=== PATIENT | female | born 1980 | race Two or more races ===

== ENCOUNTER 2016-12-10 07:19 | Emergency (ER) | payer OTHER ==
[~2016-12-10] VITALS: Ht 152.4 cm; Wt 61.2 kg
[~2016-12-10 07:19] MED LIST: AMOX500T3 PO; IBUP800T24 PO
[2016-12-10 07:48] LABS: Basophils # (auto) 0 uL; DEFINITIVE SEE PRINTOUT; Eosinophils # (auto) 0 uL
[2016-12-10 08:02] LABS: Basophils % (auto) 0.5 % (0.0-2.0); Eosinophils % (auto) 0.1 % (0.0-7.0); Hematocrit 48.7 % (36.0-46.0); Lymphocytes # (auto) 1.7 uL; Lymphocytes % (auto) 28.3 % (10.0-50.0); Mean Corpuscular Hemoglobin 28.7 pg (28.0-32.0); Mean Corpuscular Hgb Conc. 32.9 g/dL (32.0-36.0); Mean Corpuscular Volume 87.3 fL (80.0-100.0); Mean Platelet Volume 7.6 fL (7.4-10.4); Monocytes # (auto) 0.3 uL; Monocytes % (auto) 4.4 % (0.0-12.0); Neutrophils # (auto) 4.1 uL; Neutrophils % (auto) 66.7 % (37.0-80.0); Platelet Count (auto) 441 10^3/uL (140-450); Red Cell Distribution Width 12.2 % (11.6-16.0); White Blood Cell 6.1 10^3/uL (4.4-10.8)
[2016-12-10 08:15] LABS: Albumin 4.3 g/dL (3.4-5.0); BUN/Creatinine Ratio 13.4; Bilirubin, Total 0.9 mg/dL (0.2-1.0); Calcium 9.1 mg/dL (8.5-10.1); Potassium 4.3 mmol/L (3.5-5.1); Total Protein 8.5 g/dL (6.4-8.2)
[2016-12-10 08:39] LABS: Urine Bilirubin Negative (Negative); Urine Color Yellow (Yellow); Urine Glucose Normal (Normal); Urine Mucus FEW (None Seen); Urine Nitrite Negative (Negative); Urine RBC 3 /hpf (0 - 4); Urine Squamous Epithelial Cell FEW /hpf (<5); Urine Urobilinogen Normal (Negative); Urine pH 5.5 (5.0-8.0)
[2016-12-10 08:43] LABS: Urine Blood 1+ /uL (Negative); Urine Ketone 1+ (Negative)
[2016-12-10] MEDS ORDERED: LABETALOL HCL 5 MG/ML 4ML SYRINGE IV ONE (09:00)
[2016-12-10] MEDS ORDERED: KETOROLAC TROMETH 30 MG/ML 1ML VIAL IV ONE (09:00)
[2016-12-10] MEDS ORDERED: LORazepam 2MG/ML-1ML VIAL IV ONE (09:00)
[2016-12-10] MEDS ORDERED: SODIUM CHLORIDE 0.9% 1,000 ML IV ONE (10:35)
[2016-12-10 11:31] VITALS: BP 149/77
== END 2016-12-10 11:45 | disposition home or self-care (01) ==
LOC: ER 07:19
DX: G43.909 Migraine, unspecified, not intractable, without status migrainosus (principal); E86.0 Dehydration; I10 Essential (primary) hypertension
CPT/HCPCS: 36415; 70450; 80053; 81001; 81025; 84702; 85025; 96374; 96375; 99285; J1885; J2060; J3490; J7030

== ENCOUNTER 2018-08-07 19:03 | Emergency (ER) | payer OTHER ==
[~2018-08-07] VITALS: Ht 152.4 cm; Wt 56.7 kg
[2018-08-07] MEDS ORDERED: cloNIDine HCL 0.1 MG TAB ONE (19:12)
[2018-08-07] MEDS ORDERED: cloNIDine HCL 0.1 MG TAB PO ONE (19:15)
[2018-08-07 19:56] LABS: Basophils # (auto) 0 uL; Basophils % (auto) 0.6 % (0.0-2.0); Eosinophils # (auto) 0.1 uL; Eosinophils % (auto) 2.1 % (0.0-7.0); Hematocrit 43.9 % (36.0-46.0); Hemoglobin 14.5 g/dL (12.2-16.2); Lymphocytes # (auto) 2.3 uL; Mean Corpuscular Hemoglobin 29.9 pg (28.0-32.0); Mean Corpuscular Hgb Conc. 33.1 g/dL (32.0-36.0); Mean Corpuscular Volume 90.5 fL (80.0-100.0); Monocytes # (auto) 0.5 uL; Monocytes % (auto) 8.4 % (0.0-12.0); Neutrophils # (auto) 2.8 uL; Neutrophils % (auto) 48.9 % (37.0-80.0); Nucleated Red Blood Cells % 0.1 %; Platelet Count (auto) 332 10^3/uL (140-450); Red Blood Cells 4.84 10^6/uL (4.0-5.20); Red Cell Distribution Width 13.2 % (11.8-14.3); White Blood Cell 5.8 10^3/uL (4.4-10.8)
[2018-08-07 20:04] LABS: Urine Bacteria NONE SEEN /hpf (None Seen); Urine Blood 1+ /uL (Negative); Urine Specific Gravity 1.029 (1.001-1.035); Urine WBC 1 /hpf (0 - 5)
[2018-08-07 20:10] LABS: Albumin 4.2 g/dL (3.4-5.0); BUN/Creatinine Ratio 18.9; Calcium 8.3 mg/dL (8.5-10.1); Potassium 3.6 mmol/L (3.5-5.1)
[2018-08-07 20:11] LABS: Urine Pregnacy Test Negative (Negative)
[2018-08-07 20:12] LABS: Bilirubin, Total 0.4 mg/dL (0.2-1.0)
[2018-08-07 20:15] LABS: Alcohol, Urine < 3.0 mg/dL (0-5); Amphetamine Screen, Urine NEGATIVE (NEGATIVE); Barbiturate Scree,Urine NEGATIVE (NEGATIVE); Benzodiazephine Screen, Urine NEGATIVE (NEGATIVE); Cannabinoid Screen, Urine POSITIVE (NEGATIVE); Cocaine Screen, Urine NEGATIVE (NEGATIVE); Opiate Scree,Urine NEGATIVE (NEGATIVE); Phencyclidine Screen, Urine NEGATIVE (NEGATIVE)
[2018-08-08 00:49] VITALS: BP 103/65
== END 2018-08-08 01:05 | disposition home or self-care (01) ==
LOC: ER 19:03
DX: I10 Essential (primary) hypertension (principal); R42 Dizziness and giddiness; F12.10 Cannabis abuse, uncomplicated
CPT/HCPCS: 36415; 71045; 80053; 80307; 81001; 81025; 85025; 93005

== ENCOUNTER 2024-09-28 14:56 | Emergency (ER) | payer OTHER ==
[~2024-09-28] VITALS: Ht 152.4 cm; Wt 62.2 kg
[~2024-09-28 14:56] MED LIST changes: +IBUP-1456 PO; -IBUP800T24 PO
[2024-09-28 15:10] VITALS: BP 165/105; PULSE 68; RESP 19; TEMP 99.4; O2SAT 97
--- NOTE | 2024-09-28 15:13 | ECG ---
[facility] Test Date: 2024-09-28 Test Time: 15:09:29 Pat Name: CHING ADAM Department: ED Room: Gender: F Family Practice Md: ED : 1980 Requested By: FREEMAN YEBOAH Order Number: [id number] Reading MD: Carlitos Oliva Measurements Intervals [place] Rate: 61 P: 54 [place]: 133 QRS: 89 QRSD: 91 T: 48 QT: 406 QTc: 409 Interpretive Statements Sinus rhythm Electronically Signed On 09-29-2024 12:48:37 PDT by Carlitos Oliva Please click the below link to view image of tracing.
--- NOTE | 2024-09-28 15:21 | ED.PDOC ---
History of Present Illness HPI Comments 44-year-old female with PMHx HTN presents with a chief complaint of left-sided facial swelling and soreness. Patient states that she began to have soreness to the left side of her mouth, then it spread to her face, then to her left arm. Patient denies any headache, neck pain, loss of motor function, or incontinence. No other symptoms or modifying factors present at this time. Chief Complaint: Face pain Time Seen by MD: 15:10 Primary Care Provider: KAYE Morris Notes: Nurses Notes, Medications, Allergies Allergies: Coded Allergies: NO KNOWN ALLERGIES (Unverified , 05/24/13) Home Meds Active Scripts Ibuprofen (Ibuprofen) 800 Mg Tab, 800 MG PO Q6HP PRN, #20 MG 0 Refills Prov:AGUS SMALLWOOD 05/24/13 Amoxicillin Trihydrate (Amoxicillin) 500 Mg Tab, 500 MG PO BID, #20 TAB 0 Ref ills Prov:AGUS SMALLWOOD 05/24/13 Information Source: Patient Mode of Arrival: Ambulatory Severity: Moderate Timing: Hours Duration: Since onset Prehospital treatment: None Past Medical History PAST MEDICAL HISTORY: HTN Surgical History: Denies all surgeries FLAG SIGNALER History: No Pertinent FLAG SIGNALER History Family History Family History: Unknown Social History Smoker: Non-Smoker Alcohol: Denies ETOH Use Drugs: Marijuana Lives In: Home Constitutional: denies: chills, diaphoresis, fatigue, fever, malaise, sweats, weakness, others EENTM: reports: mouth swelling; denies: blurred vision, double vision, ear bleeding, ear discharge, ear drainage, ear pain, ear ringing, eye pain, eye redness, hearing loss, mouth pain, nasal discharge, nose bleeding, nose congestion, nose pain, photophobia, tearing, throat pain, throat swelling, voice changes, others Respiratory: denies: cough, hemoptysis, orthopnea, SOB at rest, shortness of breath, SOB with excertion, stridor, wheezing, others Cardiovascular: denies: chest pain, dizzy spells, diaphoresis, Dyspnea on exertion, edema, irregular heart beat, left arm pain, lightheadedness, palpitations, PND, syncope, others Gastrointestinal: denies: abdomen distended, abdominal pain, blood streaked bowels, constipated, diarrhea, dysphagia, difficulty swallowing, hematemesis, melena, nausea, poor appetite, poor fluid intake, rectal bleeding, rectal pain, vomiting, others Genitourinary: denies: abnormal vagina bleeding, burning, dyspareunia, dysuria, flank pain, frequency, hematuria, incontinence, pain, , vagina discharge, urgency, others Neurological: denies: dizziness, fainting, headache, left sided numbness, left sided weakness, numbness, paresthesia, pre-existing deficit, right sided numbness, right sided weakness, seizure, speech problems, tingling, tremors, weakness, others Musculoskeletal: reports: muscle pain; denies: back pain, gout, joint pain, joint swelling, muscle stiffness, neck pain, others Integumetry: denies: bruises, change in color, change in hair/nails, dryness, laceration, lesions, lumps, rash, wounds, others Allergic/Immunocompromised: denies: Difficulty Healing, Frequent Infections, Hives, Itching, others Hematologic/Lymphatic: denies: anemia, blood clots, easy bleeding, easy bruising, swollen glands, others Endocrine: denies: excessive hunger, excessive sweating, excessive thirst, excessive urination, flushing, intolerance to cold, intolerance to heat, unexplained weight gain, unexplained weight loss, others Psychiatric: denies: anxiety, bipolar disorder, depression, hopeless, panic disorder, schizophrenia, sleepless, suicidal, others All Other Systems: Reviewed and Negative Physical Exam General Appearance: Moderate Distress, Normal HEENT: Normal ENT Inspection, Pharynx Normal, TMs Normal, Other (Dental caries) Neck: Full Range of Motion, Non-Tender, Normal, Normal Inspection Respiratory: Chest Non-Tender, Lungs Clear, No Accessory Muscle Use, No Respiratory Distress, Normal Breath Sounds Cardiovascular: No Edema, No JVD, No Murmur, No Gallop, Normal Peripheral Pulses, Regular Rate/Rhythm Breast Exam: Deferred Gastrointestinal: No Organomegaly, Non Tender, No Pulsatile Mass, Normal Bowel Sounds, Soft Genitalia: Deferred Pelvic: Deferred Rectal: Deferred Extremities: No calf tenderness, Normal capillary refill, Normal inspection, Normal range of motion, Non-tender, No pedal edema Musculoskeletal : Apperance: Normal Neurologic: Alert, continuous dryout operator II-XII nml as Tested, No Motor Deficits, Normal Affect, Normal Mood, No Sensory Deficits Cerebellar Function: Normal Reflexes: Normal Skin: Dry, Normal Color, Warm Peripheral Pulses: 3+ Radial (R), 3+ Radial (L) Lymphatic: No Adenopathy Was a procedure done? Was a procedure done?: No Differential Dx Considerations may include: Dental caries X-Ray, Labs, Meds, VS Vital Signs Date Time Temp Pulse Resp B/P (MAP) Pulse Ox O2 Delivery O2 Flow Rate FiO2 09/28/24 15:10 99.4 68 19 165/105 (125) 97 99.4 09/28/24 15:09 61 Lab Test 09/28/24 15:30 09/28/24 15:03 Range/Units White Blood Count 7.1 4.4-10.8 10^3/uL Red Blood Count 4.62 4.0-5.20 10^6/uL Hemoglobin 13.7 12.2-16.2 g/dL Hematocrit 40.6 36.0-46.0 % Mean Corpuscular Volume 87.9 80.0-100.0 fL Mean Corpuscular Hemoglobin 29.7 28.0-32.0 pg Mean Corpuscular Hemoglobin Concent 33.8 32.0-36.0 g/dL Red Cell Distribution Width 13.1 11.8-14.3 % Platelet Count 346 140-450 10^3/uL Mean Platelet Volume 7.3 6.9-10.8 fL Neutrophils (%) (Auto) 63.0 37.0-80.0 % Lymphocytes (%) (Auto) 26.8 10.0-50.0 % Monocytes (%) (Auto) 6.7 0.0-12.0 % Eosinophils (%) (Auto) 3.1 0.0-7.0 % Basophils (%) (Auto) 0.4 0.0-2.0 % Neutrophils # (Auto) 4.5 1.6-8.6 10 ^3/uL Lymphocytes # (Auto) 1.9 0.4-5.4 10 ^3/uL Monocytes # (Auto) 0.5 0-1.3 10 ^3/uL Eosinophils # (Auto) 0.2 0-0.8 10 ^3/uL Basophils # (Auto) 0 0-0.2 10 ^3/uL Nucleated Red Blood Cells 0.0 % Sodium Level 142 136-145 mmol/L Potassium Level 4.0 3.5-5.1 mmol/L Chloride Level 104 98-107 mmol/L Carbon Dioxide Level 31 20-31 mmol/L Anion Gap 7 5-15 Blood Urea Nitrogen 9 9-23 mg/dL Creatinine 0.74 0.550-1.02 mg/dL Glomerular Filtration Rate Calc 102 >90 mL/min BUN/Creatinine Ratio 12.2 10.0-20.0 Serum Glucose 101 74-106 mg/dL Calcium Level 9.9 8.7-10.4 mg/dL POC Glucose 99 70-106 mg/dl Patient alert. Complaining of left side jaw swelling. Vitals stable. Answering questions. On examination she does have dental caries. Infection coming from the left side of the mouth. Good muscle strength. No sign of TIA. No sign of an CVA. WBC within normal limits. Blood pressure slightly elevated. Blood pressure elevated. Was given clonidine. Was given prescription Augmentin antibiotic. Explained to the patient why the antibiotics are given. Results were expressed. Was told to follow up with her primary care physician. Was told to come back if there is any problem. Time of 1ST Reevaluation: 15:10 (EXPLAINED TO THE PATIENT THAT THEY MAY BE STAYING WITH US IN THE HOSPITAL, BUT IF STABLE FOR DISCHARGE, THEY WILL BE NOTIFIED AND SENT HOME. ) Reevaluation 1ST: Unchanged Time of 2ND Reevaluation: 15:40 Reevaluation 2ND: Unchanged Patient Education/Counseling: Diagnosis, Treatment Family Education/Counseling: No Family Present Departure 1 Departure Time of Disposition: 16:02 Impression: Primary Impression: Hypertensive urgency Additional Impression: Dental caries Disposition: 01 HOME / SELF CARE / HOMELESS Condition: Good e-Prescriptions Amoxicillin & Pot Clavulanate (Augmentin) 500 Mg Tab 1 TAB PO BID for 10 Days, #20 TAB Prov: FREEMAN YEBOAH MD 09/28/24 Discharged With: Self Critical Care Note Critical Care Time?: No Stability Stability form required: No Heart Score Heart Score: Heart Score Response (Comments) Value History N/A 0 EKG N/A 0 Age N/A 0 Risk Factors N/A 0 Troponin N/A 0 Total 0 I personally scribed for FREEMAN YEBOAH MD ([email or web address]) on 09/28/24 at 15:21. Electronically submitted by Ashutosh Carlisle ([email or web address]). FREEMAN YEBOAH MD September 28, 2024 15:21
[2024-09-28 15:44] LABS: Basophils # (auto) 0 10 ^3/uL (0-0.2); Basophils % (auto) 0.4 % (0.0-2.0); Eosinophils # (auto) 0.2 10 ^3/uL (0-0.8); Eosinophils % (auto) 3.1 % (0.0-7.0); Hematocrit 40.6 % (36.0-46.0); Hemoglobin 13.7 g/dL (12.2-16.2); Lymphocytes # (auto) 1.9 10 ^3/uL (0.4-5.4); Lymphocytes % (auto) 26.8 % (10.0-50.0); Mean Corpuscular Hemoglobin 29.7 pg (28.0-32.0); Mean Corpuscular Hgb Conc. 33.8 g/dL (32.0-36.0); Mean Corpuscular Volume 87.9 fL (80.0-100.0); Monocytes # (auto) 0.5 10 ^3/uL (0-1.3); Monocytes % (auto) 6.7 % (0.0-12.0); Neutrophils # (auto) 4.5 10 ^3/uL (1.6-8.6); Platelet Count (auto) 346 10^3/uL (140-450); Red Blood Cells 4.62 10^6/uL (4.0-5.20); Red Cell Distribution Width 13.1 % (11.8-14.3); White Blood Cell 7.1 10^3/uL (4.4-10.8)
[2024-09-28 15:54] LABS: Chloride 104 mmol/L (98-107); Sodium 142 mmol/L (136-145)
[2024-09-28 15:55] LABS: Anion Gap 7 (5-15); Calcium 9.9 mg/dL (8.7-10.4); Carbon Dioxide 31 mmol/L (20-31)
[2024-09-28 16:00] LABS: BUN/Creatinine Ratio 12.2 (10.0-20.0); Blood Urea Nitrogen 9 mg/dL (9-23); Glucose 101 mg/dL (74-106)
[2024-09-28] MEDS ORDERED: AMOX500T86 PO (16:03)
[2024-09-28] MEDS ORDERED: cloNIDine HCL 0.1 MG TAB PO ONE (16:15)
== END 2024-09-29 01:00 | disposition home or self-care (01) ==
LOC: ER 15:01
DX: K02.9 Dental caries, unspecified (principal); I16.0 Hypertensive urgency; I10 Essential (primary) hypertension; F19.90 Other psychoactive substance use, unspecified, uncomplicated
CPT/HCPCS: 36415; 80048; 82947; 82962; 85025; 93005

== ENCOUNTER 2024-12-30 17:00 | Emergency (ER) | payer OTHER ==
[~2024-12-30] VITALS: Ht 152.4 cm; Wt 60.5 kg
[~2024-12-30 17:00] MED LIST changes: +AMOX500T86 PO
[2024-12-30] MEDS: KETOROLAC TROMETH 60MG/2ML VIAL IM ONE (18:01)
[2024-12-30 18:45] LABS: Urine Protein, UAD Negative (Negative)
[2024-12-30] MEDS: HYDROcodone-ACET 10/325MG TAB PO ONE (19:15)
--- NOTE | 2024-12-30 19:15 | DVH ---
EXAM: XY CERVICAL SPINE 3V HISTORY: Left-sided pain COMPARISON: None TECHNIQUE: 4 projections of the cervical spine FINDINGS: Normal alignment of the cervical spine visualized C7. No abnormal widening of the atlantoaxial inter suni. The vertebral body heights are maintained. There is no acute fracture. There is mild multilevel degenerative change of the cervical spine with mild disc space narrowing and osteophyte formation at C5-C6. No prevertebral soft tissue swelling. The lung apices are clear. Overlying soft tissues intac t. IMPRESSION: No acute fracture or traumatic malalignment. Mild spondylosis at C5-C6.
[2024-12-30] MEDS ORDERED: HYDR-4902 PO (19:58)
[2024-12-30] MEDS ORDERED: CYCL-839 PO (19:58)
[2024-12-30] MEDS ORDERED: IBUP-1455 PO (19:58)
--- NOTE | 2024-12-30 19:59 | ED.PDOC ---
Back pain HPI HPI Comments This patient is a 44-year-old female who arrives the ED today for evaluation of left-sided neck pain and left arm pain and tingling off and on for the past three weeks. Patient states the symptoms came on gradually, and have worsened over the past few weeks. Patient states left-sided neck pain and left arm pain with patches of numbness and tingling. Patient denies any history of cervical spine concerns. Patient denies any traumatic events. Patient denies any fever nausea or vomiting. Patient is hypertensive on arrival. Chief Complaint: Neck Pain Time Seen by MD: 17:14 Primary Care Provider: none Reviewed Notes: Nurses Notes Allergies: Coded Allergies: Amlodipine (Verified Allergy, Mild, 12/30/24) Sumatriptan (Verified Allergy, Mild, 12/30/24) Home Meds Active Scripts Amoxicillin & Pot Clavulanate (Augmentin) 500 Mg Tab, 1 TAB PO BID for 10 Days, #20 TAB Prov:FREEMAN YEBOAH MD 09/28/24 Ibuprofen (Ibuprofen) 800 Mg Tab, 800 MG PO Q6HP PRN, #20 MG 0 Refills Prov:AGUS SMALLWOOD 05/24/13 Amoxicillin Trihydrate (Amoxicillin) 500 Mg Tab, 500 MG PO BID, #20 TAB 0 Refills Prov:AGUS SMALLWOOD 05/24/13 Information Source: Patient, Friend Mode of Arrival: Ambulatory Timing: Weeks Duration: Since onset Severity: Moderate Prehospital treatment: Pain Meds Quality: Aching, Cramping Onset: Spontaneous History of: None Past Medical History PAST MEDICAL HISTORY: HTN Surgical History: Denies all surgeries SCRUBBER OPERATOR History: No Pertinent SCRUBBER OPERATOR History Family History Family History: Unknown Social History Smoker: Non-Smoker Alcohol: Denies ETOH Use Drugs: Marijuana Lives In: Home Constitutional: denies: chills, diaphoresis, fatigue, fever, malaise, sweats, weakness, others EENTM: denies: blurred vision, double vision, ear bleeding, ear discharge, ear drainage, ear pain, ear ringing, eye pain, eye redness, hearing loss, mouth pain, mouth swelling, nasal discharge, nose bleeding, nose congestion, nose pain, photophobia, tearing, throat pain, throat swelling, voice changes, others Respiratory: denies: cough, hemoptysis, orthopnea, SOB at rest, shortness of breath, SOB with excertion, stridor, wheezing, others Cardiovascular: denies: chest pain, dizzy spells, diaphoresis, Dyspnea on exertion, edema, irregular heart beat, left arm pain, lightheadedness, palpitations, PND, syncope, others Gastrointestinal: denies: abdomen distended, abdominal pain, blood streaked bowels, constipated, diarrhea, dysphagia, difficulty swallowing, hematemesis, melena, nausea, poor appetite, poor fluid intake, rectal bleeding, rectal pain, vomiting, others Genitourinary: denies: abnormal vagina bleeding, burning, dyspareunia, dysuria, flank pain, frequency, hematuria, incontinence, pain, , vagina discharge, urgency, others Neurological: denies: dizziness, fainting, headache, left sided numbness, left sided weakness, numbness, paresthesia, pre-existing deficit, right sided numbn ess, right sided weakness, seizure, speech problems, tingling, tremors, weakness, others Musculoskeletal: reports: neck pain, others (Left arm tingling, numbness and pain); denies: back pain, gout, joint pain, joint swelling, muscle pain, muscle stiffness Integumetry: denies: bruises, change in color, change in hair/nails, dryness, laceration, lesions, lumps, rash, wounds, others Allergic/Immunocompromised: denies: Difficulty Healing, Frequent Infections, Hives, Itching, others Hematologic/Lymphatic: denies: anemia, blood clots, easy bleeding, easy bruising, swollen glands, others Endocrine: denies: excessive hunger, excessive sweating, excessive thirst, excessive urination, flushing, intolerance to cold, intolerance to heat, unexplained weight gain, unexplained weight loss, others Psychiatric: denies: anxiety, bipolar disorder, depression, hopeless, panic disorder, schizophrenia, sleepless, suicidal, others Physical Exam General Appearance: Moderate Distress (Moderate distress due to neck and arm pain concerns.), Normal HEENT: Normal ENT Inspection, Pharynx Normal, TMs Normal Neck: Other (Left-sided neck was diffusely tender to palpation with moderate hypertonicity appreciated. Physical exam was unremarkable for any signs of trauma. No deformities noted. Patient complains of pain, tingling and numbness in the left arm. Distal neurovascularly intact.) Respiratory: Chest Non-Tender, Lungs Clear, No Accessory Muscle Use, No Respiratory Distress, Normal Breath Sounds Cardiovascular: No Edema, No JVD, No Murmur, No Gallop, Normal Peripheral Pulses, Regular Rate/Rhythm Breast Exam: Deferred Gastrointestinal: No Organomegaly, Non Tender, No Pulsatile Mass, Normal Bowel Sounds, Soft Genitalia: Deferred Pelvic: Deferred Rectal: Deferred Extremities: Other (Unremarkable left arm evaluation. No signs of trauma. 5+ over 5+ strength displayed.) Neurologic: Alert, No Motor Deficits, Normal Affect, Normal Mood, No Sensory Deficits Cerebellar Function: NOT DONE Reflexes: NOT DONE Skin: Dry, Normal Color, Warm Lymphatic: No Adenopathy Was a procedure done? Was a procedure done?: No Back Pain Differential Dx Differential Diagnosis: Other (Degenerative disc disease of the cervical spine, cervical impingement, cervical radiculopathy, muscle spasm) X-Ray, Labs, Meds, VS Vital Signs Date Time Temp Pulse Resp B/P (MAP) Pulse Ox O2 Delivery O2 Flow Rate FiO2 12/30/24 18:09 76 18 98 Room Air 12/30/24 18:09 76 18 153/93 (113) 98 12/30/24 17:01 98.1 79 18 171/97 100 98.1 Lab Test 12/30/24 17:15 Range/Units Urine Color Light-yellow Yellow Urine Clarity Turbid H Clear Urine pH 5.0 5.0-9.0 Urine Specific [place] 1.017 1.001-1.035 Urine Protein Negative Negative Urine Ketones Negative Negative Urine Blood Trace H Negative /uL Urine Nitrite Negative Negative Urine Bilirubin Negative Negative Urine Urobilinogen Normal Negative mg/dL Urine Leukocyte Esterase Trace Negative /uL Urine RBC 1 0 - 4 /hpf Urine Microscopic WBC 4 0-5 /HPF Urine Squamous Epithelial Cells Mod <5 /hpf Urine Bacteria None seen None Seen /hpf Urine Mucus Few None Seen Urine Glucose Normal Normal mg/dL Current Medications Medications (Trade) Dose Ordered Sig/Jagdish Route Start Time Stop Time Status Last Admin Ketorolac Tromethamine (Toradol Injection) 30 mg ONCE ONCE IM 12/30/24 17:30 12/30/24 17:31 DC 12/30/24 18:01 Dexamethasone Sodium Phosphate (Decadron Injection) 10 mg ONCE ONCE IM 12/30/24 17:30 12/30/24 17:31 DC 12/30/24 18:01 X-Ray, Labs, Meds, VS Comment All studies performed the ED were evaluated by me personally. Imaging studies were unremarkable for any acute fractures, but did reveal a minor spondylosis at C5-C6. I believe that this impingement as causing the patient's neck and arm pain concerns. Advised patient utilize medication as directed and if symptoms continue, follow up with the primary care provider for continued evaluation. Time of 1ST Reevaluation: 19:56 Reevaluation 1ST: Improved Consultation: PCP Patient Education/Counseling: Diagnosis, Treatment Family Education/Counseling: Diagnosis, Treatment SEPSIS Sepsis Screen Date sepsis recognized/suspect: Dec 30, 2024 Time Sepsis recognized/suspect: 1702 Recent Procedure: No On Antibiotic Therapy: No Respiratory Rate >20: No Heart Rate >90: No Temp<36 C (96.8 F) or >38.3 C: No SBP <90 or MAP <65 mmHG: No New Acute Mental Status Change: No Is the patient on CPAP, BIPAP,: No Physician Orders Cervical Spine 3v (12/30/24 17:18) Vital Signs Date Time Temp Pulse Resp B/P (MAP) Pulse Ox O2 Delivery O2 Flow Rate FiO2 12/30/24 18:09 76 18 98 Room Air 12/30/24 18:09 76 18 153/93 (113) 98 12/30/24 17:01 98.1 79 18 171/97 100 98.1 Medications Medications Dose Ordered Sig/Jagdish Route Start Time Stop Time Status Last Admin Dose Admin Dexamethasone Sodium Phosphate 10 mg ONCE ONCE IM 12/30/24 17:30 12/30/24 17:31 DC 12/30/24 18:01 Ketorolac Tromethamine 30 mg ONCE ONCE IM 12/30/24 17:30 12/30/24 17:31 DC 12/30/24 18:01 Departure 1 Departure Time of Disposition: 19:56 Impression: Primary Impression: Spondylosis of cervical joint Disposition: 01 HOME / SELF CARE / HOMELESS Condition: Stable Additional Instructions: Advised patient utilize pain medication as needed as well as ice therapy. If symptoms continue, patient will need to follow up with the primary care provider for possible orthopedic referral. e-Prescriptions Hydrocodone-Acetaminophen (Hydrocodone Bitartrate/AC 5-325 mg) 1 Tab Tab 1 TAB PO Q6HP PRN, #15 TAB Prov: MANISH RICHARDS PAC 12/30/24 Cyclobenzaprine Hcl (Cyclobenzaprine Hcl) 10 Mg Tab 10 MG PO Q8HP PRN, #15 TAB Prov: MANISH RICHARDS PAC 12/30/24 Ibuprofen Micronized (Ibuprofen) 800 Mg Tab 800 MG PO Q8HP PRN, #20 TAB Prov: MANISH RICHARDS PAC 12/30/24 Discharged With: Self, Friend Critical Care Note Critical Care Time?: No Stability Stability form required: No Heart Score Heart Score: Heart Score Response (Comments) Value History N/A 0 EKG N/A 0 Age N/A 0 Risk Factors N/A 0 Troponin N/A 0 Total 0 MANISH RICHARDS PAC Dec 30, 2024 19:59
[2024-12-30 20:18] VITALS: BP 149/90; PULSE 75; RESP 16; TEMP 97.9; O2SAT 98
== END 2024-12-30 20:22 | disposition home or self-care (01) ==
LOC: ER 17:00
DX: M47.812 Spondylosis without myelopathy or radiculopathy, cervical region (principal); I10 Essential (primary) hypertension; Z88.8 Allergy status to other drugs, medicaments and biological substances; Z79.899 Other long term (current) drug therapy
CPT/HCPCS: 72040; 81001; 96372; 99284; J1100; J1885